=== PATIENT | female | born 1990 | race Caucasian/White ===

== ENCOUNTER 2016-10-02 13:31 | Emergency (ER) | payer OTHER ==
[~2016-10-02] VITALS: Ht 152.4 cm; Wt 85.7 kg
[2016-10-02 15:20] VITALS: BP 138/50
== END 2016-10-02 15:21 | disposition home or self-care (01) ==
LOC: ED 13:31
DX: T43.221A Poisoning by selective serotonin reuptake inhibitors, accidental (unintentional), initial encounter (principal); K42.9 Umbilical hernia without obstruction or gangrene; E66.9 Obesity, unspecified; F41.9 Anxiety disorder, unspecified; Y92.89 Other specified places as the place of occurrence of the external cause

== ENCOUNTER 2016-11-01 16:43 | Emergency (ER) | payer OTHER ==
[~2016-11-01] VITALS: Ht 152.4 cm; Wt 81.6 kg
[2016-11-01 20:16] VITALS: BP 120/68
== END 2016-11-01 20:16 | disposition home or self-care (01) ==
LOC: ED 16:43
DX: Z76.0 Encounter for issue of repeat prescription (principal); F41.9 Anxiety disorder, unspecified; E66.9 Obesity, unspecified; K42.9 Umbilical hernia without obstruction or gangrene

== ENCOUNTER 2017-09-09 03:35 | Emergency (ER) | payer OTHER ==
[~2017-09-09] VITALS: Ht 149.9 cm; Wt 91.6 kg
[2017-09-09 03:41] VITALS: Ht 149.9 cm; Wt 91.6 kg
[2017-09-09 06:01] VITALS: BP 103/65
== END 2017-09-09 06:01 | disposition home or self-care (01) ==
LOC: ED 03:35
DX: B34.9 Viral infection, unspecified (principal); N39.0 Urinary tract infection, site not specified
CPT/HCPCS: 87804; Q0162

== ENCOUNTER 2017-12-20 00:22 | Emergency (ER) | payer OTHER ==
[~2017-12-20] VITALS: Ht 152.4 cm; Wt 90.7 kg
[2017-12-20 00:29] VITALS: Ht 152.4 cm; Wt 90.7 kg
[2017-12-20 02:22] VITALS: BP 109/67
== END 2017-12-20 02:22 | disposition home or self-care (01) ==
LOC: ED 00:22
DX: J02.9 Acute pharyngitis, unspecified (principal); N39.0 Urinary tract infection, site not specified

== ENCOUNTER 2018-12-06 02:40 | Emergency (ER) | payer OTHER ==
[~2018-12-06] VITALS: Ht 149.9 cm; Wt 88.5 kg
[2018-12-06 02:46] VITALS: Ht 149.9 cm; Wt 88.5 kg
[2018-12-06 03:44] LABS: BASOPHIL % 0.2 % (0-2); PLATELET COUNT 225 x10^3mcL (130-400); RED CELL DISTRIBUTION WIDTH 12.6 % (11.5-14.5)
[2018-12-06 03:45] LABS: CALCIUM 8.6 mg/dL (8.5-10.1); CARBON DIOXIDE 26.3 mmol/L (21-32); CHLORIDE SERUM 102 mmol/L (98-107); CREATININE SERUM 0.9 mg/dL (0.6-1.0); GFR1 > 60 mL/min; GLUCOSE SERUM 117 mg/dL (74-106); POTASSIUM SERUM 3.2 mmol/L (3.5-5.1); SODIUM SERUM 136 mmol/L (136-145)
[2018-12-06 03:51] LABS: ALBUMIN 3.7 g/dL (3.4-5.0); ALKALINE PHOSPHATASE 101 U/L (46-116); ALT/SGPT 32 U/L (14-59); AST/SGOT 13 U/L (15-37); BILIRUBIN TOTAL 0.6 mg/dL (0.20-1.00); TOTAL PROTEIN, SERUM 7.8 g/dL (6.4-8.2)
[2018-12-06 04:24] VITALS: BP 123/67
== END 2018-12-06 04:24 | disposition home or self-care (01) ==
LOC: ED 02:40
PROVIDERS: Emergency Medicine
DX: J36 Peritonsillar abscess (principal); R42 Dizziness and giddiness; F41.9 Anxiety disorder, unspecified
CPT/HCPCS: J0696; J2405; J7030

== ENCOUNTER 2019-03-10 09:52 | Emergency (ER) | payer OTHER ==
[~2019-03-10] VITALS: Ht 152.4 cm; Wt 88.5 kg
[2019-03-10 09:57] VITALS: Ht 152.4 cm; Wt 88.5 kg
[2019-03-10 11:36] LABS: BASOPHIL % 0.3 % (0-2); PLATELET COUNT 243 x10^3mcL (130-400); RED CELL DISTRIBUTION WIDTH 12.9 % (11.5-14.5)
[2019-03-10 11:46] LABS: microscopic required? NO
[2019-03-10 11:52] LABS: UA SPECIFIC GRAVITY 1.015 (1.005-1.035); urine erythrocyte NEGATIVE (NEGATIVE)
[2019-03-10 11:53] LABS: CALCIUM 8.9 mg/dL (8.5-10.1); CARBON DIOXIDE 32.3 mmol/L (21-32); CHLORIDE SERUM 103 mmol/L (98-107); CREATININE SERUM 0.6 mg/dL (0.6-1.0); GFR1 > 60 mL/min; GLUCOSE SERUM 100 mg/dL (74-106); POTASSIUM SERUM 4.4 mmol/L (3.5-5.1); SODIUM SERUM 139 mmol/L (136-145)
[2019-03-10 11:57] LABS: ALBUMIN 3.6 g/dL (3.4-5.0); ALKALINE PHOSPHATASE 139 U/L (46-116); ALT/SGPT 40 U/L (14-59); AST/SGOT 24 U/L (15-37); LIPASE 86 IU/L (73-393); TOTAL PROTEIN, SERUM 7.6 g/dL (6.4-8.2)
[2019-03-10 14:08] VITALS: BP 102/51
== END 2019-03-10 14:08 | disposition home or self-care (01) ==
LOC: ED 09:52
PROVIDERS: Emergency Medicine
DX: R10.13 Epigastric pain (principal); F41.9 Anxiety disorder, unspecified; Z98.890 Other specified postprocedural states
CPT/HCPCS: J1885; J7030; Q9967